=== PATIENT | female | born 1945 | race Caucasian/White ===

== ENCOUNTER 2022-07-06 10:10 | Outpatient (CLI) | payer MEDICARE, OTHER | END 2022-07-06 10:11 | disposition home or self-care (01) | LOC: CSHULT 10:10 | PROVIDERS: ATTEND Otolaryngology Plastic Surgery within the Head & Neck | DX: E04.9 Nontoxic goiter, unspecified (principal) | CPT/HCPCS: 76536 ==

== ENCOUNTER 2022-09-29 05:45 | Day surgery (SDC) | payer MEDICARE, OTHER ==
[2022-09-28 11:54] VITALS: BMI 27.1
[2022-09-29] MEDS ORDERED: PROPOFOL 40 ML ONE (07:15)
[2022-09-29] MEDS ORDERED: Lidocaine 1% PF 5 ML VIAL ONE (07:15)
== END 2022-09-29 08:29 | disposition home or self-care (01) ==
LOC: CSHSDC 05:45
PROVIDERS: ATTEND Internal Medicine Gastroenterology
PROC: 0DJD8ZZ Inspection of Lower Intestinal Tract, Via Natural or Artificial Opening Endoscopic (ICD-10-PCS; principal; 2022-09-29)
DX: Z12.11 Encounter for screening for malignant neoplasm of colon (principal); K64.9 Unspecified hemorrhoids; Z80.0 Family history of malignant neoplasm of digestive organs; E78.5 Hyperlipidemia, unspecified; I10 Essential (primary) hypertension; I48.91 Unspecified atrial fibrillation; Z79.82 Long term (current) use of aspirin; Z79.899 Other long term (current) drug therapy; Z79.01 Long term (current) use of anticoagulants; Z90.49 Acquired absence of other specified parts of digestive tract; Z88.8 Allergy status to other drugs, medicaments and biological substances
CPT/HCPCS: J2704

== ENCOUNTER 2023-07-14 17:33 | Emergency (ER) | payer MEDICARE, OTHER ==
[2023-07-14 19:14] LABS: #Basophils 0.1 10x3/uL (0.0-0.2); #Eosinphils 0.1 10x3/uL (0.0-0.5); #Monocytes 0.6 10x3/uL (0.0-1.1); %Basophils 0.5 % (0.0-2.0); %Eosinophils 0.7 % (0.0-6.0); %Lymphocytes 19.6 % (18.0-47.0); %Monocytes 6.1 % (0.0-10.0); %Neutrophils 72.8 % (40.0-75.0); Hemoglobin 14.9 g/dL (12.0-15.5); Mean Corpuscular HGB CONC 34.7 g/dL (32.0-36.0); Mean Corpuscular Hemoglobin 31.8 pg (27.0-33.0); Mean Corpuscular Volume 91.7 fl (81.6-98.3); Mean Platelet Volume 9.8 fl (7.4-10.4); Platelet Count 219 10x3/uL (150-450); RBC Distribution Width 12.5 % (11.5-14.5); Red Blood Cell (RBC) Count 4.69 10x6/uL (3.90-5.03); White Blood Cell (WBC) Count 9.7 10x3/uL (3.5-10.5)
[2023-07-14 19:20] LABS: ALT (SGPT) 24 U/L (8-55); AST (SGOT) 33 U/L (5-34); Albumin 4.2 g/dL (3.4-4.8); Alkaline Phosphatase 55 U/L (40-110); Anion Gap 15 mmol/L (10-20); BUN (Urea Nitrogen) 13 mg/dL (9.8-20.1); Bilirubin, Total 0.6 mg/dL (0.2-1.2); Calc. Creatinine Clearance 0 mL/min (70-130); Calcium 9.6 mg/dL (7.8-10.44); Carbon Dioxide 25 mmol/L (23-31); Chloride 90 mmol/L (98-107); Estimated GFR 65; Glucose 128 mg/dL (83-110); Lipase 29 U/L (8-78); Magnesium 1.8 mg/dL (1.6-2.6); Potassium 3.9 mmol/L (3.5-5.1); Protein, Total 7.2 g/dL (5.8-8.1); Sodium 126 mmol/L (136-145)
[2023-07-14 19:21] LABS: Troponin I 0.026 ng/mL (< 0.028)
[2023-07-14 20:59] LABS: Bilirubin Neg (Negative); Blood, Urine 25 (Negative); Clarity Clear (Clear); Glucose, Urine (Dipstick) Normal (Negative); Ketone, Urine Negative (Negative); Leukocyte 25 (Negative); Nitrite Negative (Negative); Protein, Urine (Dipstick) 15 mg/dl (Neg-Trace); Urobilinogen Normal mg/dL (Less than 2); pH, Urine 6.5 (5.0-9.0)
[2023-07-14] MEDS ORDERED: hydrALAZINE 20 MG/ML VIAL ONE (21:05)
[2023-07-14 21:20] LABS: Bacteria/HPF Rare-Few HPF (None Seen); CAUTI Indications for Culture Pelvic or flank pain; RBC/HPF 0-3 HPF (0-3); Squamous Epithelial 0-3 HPF (0-3)
[2023-07-14 21:22] LABS: Urine Culture Reflex No No
[2023-07-15] LABS: SARS-CoV-2 NAA Rapid Test Not Detected (NotDetected)
[2023-07-15 00:34] LABS: Anion Gap 13 mmol/L (10-20); BUN (Urea Nitrogen) 12 mg/dL (9.8-20.1); Calc. Creatinine Clearance 0 mL/min (70-130); Carbon Dioxide 23 mmol/L (23-31); Chloride 92 mmol/L (98-107); Estimated GFR 80; Glucose 126 mg/dL (83-110); Potassium 3.3 mmol/L (3.5-5.1); Sodium 125 mmol/L (136-145)
[2023-07-15] MEDS ORDERED: Aspirin 325 MG TAB ONE (01:28)
[2023-07-15] MEDS ORDERED: Morphine 2 MG/ML VIAL ONE (01:57)
[2023-07-15 05:03] LABS: Troponin I 0.161 ng/mL (< 0.028)
== END 2023-07-15 05:13 | disposition short-term general hospital (02) ==
LOC: CSHERS 17:33
DX: R07.89 Other chest pain (principal); E87.1 Hypo-osmolality and hyponatremia; R79.89 Other specified abnormal findings of blood chemistry; E78.00 Pure hypercholesterolemia, unspecified; Z20.822 Contact with and (suspected) exposure to COVID-19
CPT/HCPCS: 0240U; 71045; 80048; 80053; 81001; 83690; 83735; 83880; 84484 ×2; 85025; 93005; J0360; 36415; 96374; 96375; J2272